=== PATIENT | female | born 1950 | race Caucasian/White ===

== ENCOUNTER → 2016-12-21 | Day surgery (SDC) | payer OTHER, BC ==
[~2016-12-21] VITALS: Ht 170.2 cm; Wt 81.7 kg
[~2016-12-21] MED LIST: ASPIR-LOW81 MG PO; ASPIRIN325 MG PO; ATORVASTATIN CA20 MG PO; CENTRUM SILVER1 EAC3 PO; FENTANYL1 EAC1 TD; HYDROMORPHONE HC2 MG PO; ISOSORBIDE MONO60 MG PO; LEVOTHYROXINE50 MCG PO; MELATIN3 MG PO; MIRALAX17 GM PO; NITROSTAT0.4 MG SL; NORVASC5 MG PO; PRILOSEC20 MG PO
== END | disposition home or self-care (01) ==
LOC: CATH 07:10
DX: R07.9 Chest pain, unspecified (principal); I25.10 Atherosclerotic heart disease of native coronary artery without angina pectoris; I34.0 Nonrheumatic mitral (valve) insufficiency; I10 Essential (primary) hypertension
CPT/HCPCS: 93005; C1750; C1769; C1887; J1200; J1644; J2250; J2765; J3010; J7050

== ENCOUNTER 2017-11-10 14:31 | Emergency (ER) | payer OTHER, BC ==
[~2017-11-10] VITALS: Ht 167.6 cm; Wt 77.9 kg
[2017-11-10 17:07] VITALS: BP 138/77
== END 2017-11-10 17:08 | disposition home or self-care (01) ==
LOC: EME 14:31
DX: S00.03XA Contusion of scalp, initial encounter (principal); S50.01XA Contusion of right elbow, initial encounter; S00.411A Abrasion of right ear, initial encounter; W18.30XA Fall on same level, unspecified, initial encounter; Y92.008 Other place in unspecified non-institutional (private) residence as the place of occurrence of the external cause; I10 Essential (primary) hypertension; K21.9 Gastro-esophageal reflux disease without esophagitis; Z79.82 Long term (current) use of aspirin; Z88.8 Allergy status to other drugs, medicaments and biological substances
CPT/HCPCS: 73080; 99281; 99285